=== PATIENT | male | born 1980 | race Caucasian/White ===

== ENCOUNTER 2021-07-09 19:18 | Emergency (ER) | payer MEDICAID ==
[~2021-07-09] VITALS: Ht 170.2 cm; Wt 77.1 kg
[2021-07-09 19:39] VITALS: BP 150/86
--- NOTE | 2021-07-09 19:48 | NUR ---
PT TAKEN TO ER BED 05
[2021-07-09] MEDS ORDERED: TETRACAINE HCL/PF 0.5% OPTH 4 ML BTL ONE (19:55)
[2021-07-09] MEDS ORDERED: FLUORESCEIN OPTH STRIP 1 MG OP ONE (19:55)
[2021-07-09] MEDS ORDERED: TETRACAINE HCL/PF 0.5% OPTH 4 ML BTL OP ONE (19:55)
--- NOTE | 2021-07-09 20:00 | NUR ---
41/M BIB SELF C/O RIGHT EYE PAIN WITH POSSIBLE FOREIGN BODY. PATIENT STATED "SOMETHING BLEW IN HIS EYE" AT APPROX 1300. RIGHT EYE IS RED, IRRITATED AND TEARY. PATIENT STATED PAIN IS SHARP AND 8/10. PER DAUGHTER , SHE STATED HE MAY HAVE HAD DUST BLOW IN HIS EYE. PATIENT AAOX4, AMBULATORY WITHOUT ASSIST. PATIENT IN BED. BED LOW AND LOCKED. ALL NEEDS MET AT THIS TIME. DAUGHTER AT BEDSIDE. FABIOLA
[2021-07-09] MEDS ORDERED: ERYT5OIN58 OP (20:09)
[2021-07-09 20:32] VITALS: BP 145/78
--- NOTE | 2021-07-09 20:32 | NUR ---
Patient discharged with v/s stable. Written and verbal after care instructions given on Corneal Abrasion and explained. Patient alert, oriented and verbalized understanding of instructions. Ambulatory with steady gait. All questions addressed prior to discharge. ID band removed. Patient advised to follow up with PMD. Rx of Erythromycin Base given.
--- NOTE | 2021-07-09 20:33 | NUR ---
Chart checked and completed.
== END 2021-07-09 20:33 | disposition home or self-care (01) ==
LOC: MED 19:18
DX: S05.01XA Injury of conjunctiva and corneal abrasion without foreign body, right eye, initial encounter (principal); Z79.899 Other long term (current) drug therapy; X58.XXXA Exposure to other specified factors, initial encounter; Y93.89 Activity, other specified; Y92.89 Other specified places as the place of occurrence of the external cause; Y99.8 Other external cause status
CPT/HCPCS: 99283